=== PATIENT | male | born 1945 | race Caucasian/White ===

== ENCOUNTER 2017-04-07 15:11 | Inpatient (IN) ==
[2017-04-07 15:48] LABS: URINE CULTURE NEEDED? NO; URINE MICRO REVIEW NEEDED? NO; URINE SOURCE CLEAN CATCH
[2017-04-07 16:08] LABS: BASO% 0.6 % (0.0-0.8); EOS# 0.09 X1000 (0.0-0.7); EOS% 0.8 % (0.0-10.0); HEMOGLOBIN 14.1 g/dL (14.0-18.0); IMM GRAN# 0.04 X1000 (0.0-0.04); IMM GRAN% 0.4 % (0.0-0.5); LYMPH# 1.36 X1000 (1.2-3.4); LYMPH% 12.1 % (20.5-51.1); MANUAL DIFF NEEDED? NO; MCH 31.5 PG (27-31); MCHC 35.3 g/dL (33-37); MCV 89.3 FL (81-99); MONO# 1.12 X1000 (0.11-0.59); MONO% 9.9 % (1.7-9.3); NEUT% 76.2 % (42.2-75.2); PLT 146 X1000 (130-400); RBC 4.48 XMIL (4.7-6.1)
[2017-04-07 16:08] LABS: BLOOD URINE NEGATIVE (NEGATIVE); COLOR YELLOW; GLUCOSE URINE NEGATIVE (NEGATIVE); LEUKOCYTES URINE NEGATIVE (NEGATIVE); NITRITE URINE NEGATIVE (NEGATIVE); PROTEIN URINE TRACE mg/dL (NEGATIVE); SP GRAVITY URINE 1.023; TURBIDITY URINE CLEAR (CLEAR); UROBILINOGEN URINE 2 mg/dL (NORMAL)
[2017-04-07 16:10] LABS: UR EPITHELIAL CELLS <10 /HPF (<10); URINE BACTERIA NEGATIVE /HPF; URINE RBC <10 /HPF (<10); URINE WBC <10 /HPF (<10)
[2017-04-07 16:11] LABS: BILIRUBIN URINE LARGE (NEGATIVE)
[2017-04-07 16:22] LABS: AGAP 14; ALBUMIN 3.6 g/dL (3.5-5.0); ALKALINE PHOSPHATASE 546 U/L (32-122); AMYLASE 51 U/L (20-200); BUN 12 mg/dL (8-22); CALCIUM 9.2 mg/dL (8.8-10.2); CHLORIDE 102 mmol/L (98-107); COSMO 278; GOT 215 U/L (10-34); GPT 202 U/L (10-44); LIPASE 33 U/L (13-60); POTASSIUM 4.7 mmol/L (3.5-5.1); SODIUM 139 mmol/L (136-145); TCO2 23 mmol/L (25-35); TOTAL BILIRUBIN 12.76 mg/dL (0.20-1.00); TOTAL PROTEIN 7.2 g/dL (6.3-8.3)
--- NOTE | 2017-04-07 17:51 | Diag Imaging Result Doc PS360 ---
CT ABD/PELVIS W/ IV CONT ONLY - 04/07/2017 INDICATION: ABDOMINAL PAIN AND JAUNDICE TECHNIQUE: A CT dose reduction protocol was used. COMPARISON: Ultrasound abdomen 09/16/2016 FINDINGS: There is a partially visible pulmonary nodule in the right middle lobe measuring 6.8 mm. No infiltrates in the lung bases. Heart size is normal. There is severely advanced cirrhosis with severely abnormal, nodular liver contour and heterogeneity indicating severe liver scarring. There is heterogeneous enhancement in an unusual pattern throughout the dome of the liver. There is also a masslike area at the posterior left lobe of the liver. There is multi segment biliary dilation. The gallbladder is collapsed with numerous small calcified gallstones. There are bilateral renal cysts. No acute abnormality of the kidneys. Adrenals and pancreas are normal. No bowel obstruction or inflammation. Urinary bladder is collapsed with nonspecific wall thickening. Prostate is normal. There is trace pelvic free fluid presumably ascites fluid. There are moderate degenerative changes of the spine. No acute or suspicious bony lesion. There is moderate splenomegaly. The spleen size measures about 14 cm. Splenic vein is patent. There are numerous collaterals including gastroesophageal collaterals and splenorenal collaterals. IMPRESSION: 1. Severely abnormal liver with severe atrophy compatible with advanced cirrhosis. 2. Mildly suspicious hypo-enhancing masses of the liver dome and posterior left lobe. Correlate clinically for possible hepatocellular carcinoma. 3. Severely abnormal gallbladder. Multi segment biliary dilation of intrahepatic bile ducts presumably due to severe scarring. 4. Portal hypertension with venous collaterals. Electronically signed by Viktor Mahmood 04/07/2017 5:49 PM
--- NOTE | 2017-04-07 18:18 | PROVIDER DOCUMENTATION ---
This chart was entered by Nahid Holliday Scribe, acting as scribe for Jagjit Kiran PA. HPI-Abdominal Pain/GI Problem - General Chief Complaint: Abdominal Pain Stated Complaint: JAUNDICE Time Seen by Provider: 04/07/17 16:14 Source: patient Allergies/Adverse Reactions: Patient Allergies Allergy/AdvReac Type Severity Reaction Status Date / Time No Known Allergies Allergy Verified 09/22/16 07:35 Home Medications: Home Medication List Medication Instructions Recorded Confirmed Last Taken Type Tamsulosin [Flomax] 0.4 mg PO DAILY 09/21/16 04/07/17 02/22/17 History - History of Present Illness-ABD Nature of Presenting Problems: Patient is a 71 y/o M that presents to the ER per 's request due to abdominal pain,itching, and jaundice. Patient symptoms began 2 weeks ago and got worse over past few days. patient denies n/v/d, rectal bleeding, fever/ chills, or edema. Abdominal Pain Onset Location: reports: epigastric Pain Radiation: reports: no radiation Quality of Pain: reports: aching, cramping Severity in ED: reports: moderate Onset/Duration: reports: gradual, other (2 weeks) Timing: reports: still present, getting worse (past few days) Activities at Onset: reports: none Modifying Factors: improves with: nothing Associated Symptoms: reports: other (itching). denies: chest pain, diarrhea, dizziness, EENT symptoms, fever/chills, genitourinary problems, nausea, vomiting Similar Symptoms Previously?: Yes Recently seen or treated by another doctor?: Yes Review of Systems - Adult - REVIEW OF SYSTEMS - ADULT Constitutional: denies: chills, fever Eyes: reports: no symptoms reported Ears, Nose, Mouth & Throat: reports: no symptoms reported Cardiovascular: denies: chest pain, orthopnea, palpitations, syncope Respiratory: denies: cough, dyspnea on exertion, shortness of breath, wheezing Gastrointestinal: reports: abdominal pain. denies: constipation, diarrhea, nausea, rectal bleeding, vomiting Genitourinary: reports: no symptoms reported Musculoskeletal: denies: back pain, joint pain, neck pain Integumentary: reports: itching. denies: rash Neurological: denies: dizziness/vertigo, headache/migraines Psychiatric: reports: no symptoms reported Endocrine: reports: change in skin pigment. denies: goiter, increased thirst, polyuria Hematologic/Lymphatic: reports: no symptoms reported Allergic/Immunologic: reports: no symptoms reported All Other Systems: Reviewed and Negative Past History - Adult - PAST MEDICAL HISTORY-ADULT Review of Records: reports: Old Records Reviewed, Nursing Assessment Review, Medications Reviewed Gastrointestinal: reports: liver disease (hep B), other (jaundice in the 70s) - SOCIAL HISTORY Smoking: cigarettes Living Situation: family Physical Exam-General - PHYSICAL EXAM-ADULT Initial Vital Signs Reviewed: Yes - CONSTITUTIONAL General Appearance: alert, mild distress, moderate distress - EYES Eyes: PERRL/EOMI, scleral icterus - HEAD, EARS, NOSE, MOUTH & THROAT HENMT: normocephalic/atraumatic, moist mucous membranes, normal ENT inspection - NECK Neck: full range of motion, normal inspection - RESPIRATORY Respiratory: lungs clear, normal breath sounds, no respiratory distress, no accessory muscle use - CARDIOVASCULAR Cardiovascular: regular rate, rhythm, no edema, no murmur - GASTROINTESTINAL (ABDOMEN) Abdominal Exam: normal bowel sounds, soft, no organomegaly, no pulsatile mass, tenderness (mild epigastric). negative: distended - MUSCULOSKELETAL Back Exam: no CVA tenderness, no vertebral tenderness Extremity: no pedal edema, normal capillary refill, pelvis stable. negative: pedal edema - SKIN Integumentary: jaundice. negative: cyanosis - NEUROLOGIC Neurologic: courier II-XII nml as tested, no motor/sensory deficits - PSYCHIATRIC Psych/Mental Status: normal mood/affect, normal thought content, normal thought process, oriented x 3 Progress - PLAN OF CARE/RESULTS Progress/Plan/Lab Results: Vital Signs - 8 hr 04/07/17 15:16 Temperature 97.9 F Pulse Rate 91 H Respiratory Rate 18 Blood Pressure 139/80 O2 Sat by Pulse Oximetry 100 Laboratory Results - last 24 hr 04/07/17 04/07/17 04/07/17 15:23 15:23 15:23 WBC 11.26 H RBC 4.48 L Hgb 14.1 Hct 40.0 L MCV 89.3 MCH 31.5 H MCHC 35.3 RDW Std Deviation 16.4 H Plt Count 146 MPV Not Reportable Immature Gran % (Auto) 0.4 Neut % (Auto) 76.2 H Lymph % (Auto) 12.1 L [place] % (Auto) 9.9 H Eos % (Auto) 0.8 Baso % (Auto) 0.6 Immature Gran # (Auto) 0.04 Neut # (Auto) 8.58 H Lymph # (Auto) 1.36 [place] # (Auto) 1.12 H Eos # (Auto) 0.09 Baso # (Auto) 0.07 Sodium 139 Potassium 4.7 Chloride 102 Carbon Dioxide 23 L Anion Gap 14 BUN 12 Creatinine 0.7 Estimated GFR/1.73 m2 > 60 BUN/Creatinine Ratio 17 Glucose 109 H Calculated Osmolality 278 Calcium 9.2 Total Bilirubin 12.76 H AST 215 H ALT 202 H Alkaline Phosphatase 546 H Ammonia 19 Total Protein 7.2 Albumin 3.6 Globulin 3.6 Albumin/Globulin Ratio 1.0 Amylase 51 Lipase 33 Urine Source Urine Color Urine Turbidity Urine pH Ur Specific [place] Urine Protein Ur Glucose (Stick) Ur Ketones (Stick) Urine Blood Urine Nitrite Urine Bilirubin Urobilinogen Dipstick Urine Leukocytes Urine WBC (Auto) Urine RBC (Auto) U Epithel Cells (Auto) Urine Bacteria (Auto) 04/07/17 15:25 WBC RBC Hgb Hct MCV MCH MCHC RDW Std Deviation Plt Count MPV Immature Gran % (Auto) Neut % (Auto) Lymph % (Auto) [place] % (Auto) Eos % (Auto) Baso % (Auto) Immature Gran # (Auto) Neut # (Auto) Lymph # (Auto) [place] # (Auto) Eos # (Auto) Baso # (Auto) Sodium Potassium Chloride Carbon Dioxide Anion Gap BUN Creatinine Estimated GFR/1.73 m2 BUN/Creatinine Ratio Glucose Calculated Osmolality Calcium Total Bilirubin AST ALT Alkaline Phosphatase Ammonia Total Protein Albumin Globulin Albumin/Globulin Ratio Amylase Lipase Urine Source CLEAN CATCH Urine Color YELLOW Urine Turbidity CLEAR Urine pH 6.0 Ur Specific [place] 1.023 Urine Protein TRACE A Ur Glucose (Stick) NEGATIVE Ur Ketones (Stick) NEGATIVE Urine Blood NEGATIVE Urine Nitrite NEGATIVE Urine Bilirubin LARGE A Urobilinogen Dipstick 2 A Urine Leukocytes NEGATIVE Urine WBC (Auto) <10 Urine RBC (Auto) <10 U Epithel Cells (Auto) <10 Urine Bacteria (Auto) NEGATIVE Orders Category Date Time Status Saline Loc DIRECTED Care 04/07/17 15:23 Active NPO Diet 04/07/17 15:[address] ABD/PELVIS W/ IV CONT ONLY [CT] Stat Exams 04/07/17 15:24 Ordered AMMONIA [CHEM] Stat Lab 04/07/17 15:23 Completed AMYLASE [CHEM] Stat Lab 04/07/17 15:23 Completed CBC WITH ELECTRONIC DIFF [HEME] Stat Lab 04/07/17 15:23 Completed COMPREHENSIVE METABOLIC PANEL [CHEM] Stat Lab 04/07/17 15:23 Completed LIPASE [CHEM] Stat Lab 04/07/17 15:23 Completed URINALYSIS W/POSS RFLX CULT-1 [URINALYSIS] Stat Lab 04/07/17 15:25 Completed Result Diagrams: 04/07/17 15:23 04/07/17 15:23 - CT/MRI 1 CT Study: Abdomen, Pelvis Impression: Abnormal (advanes cirrhosis; 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; multisegmental biliary dilitation; portal hypertension) - CONSULTS/PCP/HOSPITALIST Notification #1 *Consult/PCP/Hospitalist*: Hospitalist Service Time Discussed: 18:16 Consult Disposition: Admit Departure - Departure Date of Disposition Decision: 04/07/17 Time of Disposition Decision: 18:17 DIAGNOSIS: Liver mass, Dilation of biliary tract, Jaundice Hepatic cirrhosis Qualifiers: Hepatic cirrhosis type: unspecified hepatic cirrhosis Ascites presence: without ascites Qualified Code(s): K74.60 - Unspecified cirrhosis of liver Disposition: ADMITTED INPATIENT 09 Certified Medical Emergency: Emergent Condition: Good Referrals and Follow-Ups: Michell Meza [Primary Care Provider] - - Critical Care Note This patient required my direct & personal management of CC.: No Attestation - Physician/ JABARI Attestation Patient care was provided by Advanced Practice Provider:: Yes Advanced Practice Provider:: Jagjit Kiran Advanced Practice Provider documentation review:: The Mid-level provider documentation, treatment plan and medical decision making was reviewed by the physician who agrees with all treatment and medical decision making by the MLP. The physician spent face to face time with patient:: Yes Advanced Practice Provider documentation review:: The physician spent face to face time with this patient and agrees with all MLP documentation, treatment, and medical decision making by the MLP. See provider notes for further information. This chart was documented by the indicated scribe, (Nahid Holliday, Lachelle) and accurately reflects the services I performed and decisions made by me, Jagjit Kiran PA, as attested by the provider's signature.
[2017-04-07 18:48] LABS: INR 1.03; PROTIME 10.8 Seconds (9.2-11.7)
[2017-04-07 19:02] LABS: ACETAMINOPHEN < 1.2 ug/mL (10-30)
[2017-04-07] MEDS ORDERED: MORPHINE IV PRN (19:04)
[2017-04-07 19:09] LABS: UR AMPHETAMINES QUAL NONE DETECTED (NONE DETECT); UR BARBITUATES QUAL NONE DETECTED (NONE DETECT); UR BENZODIAZEPIN QUAL NONE DETECTED (NONE DETECT); UR CANNABINOIDS QUAL NONE DETECTED (NONE DETECT); UR COCAINE QUAL NONE DETECTED (NONE DETECT); UR METHADONE QUAL NONE DETECTED (NONE DETECT); UR OPIATES QUAL NONE DETECTED (NONE DETECT); UR OXYCODONE QUAL NONE DETECTED (NONE DETECT); UR PCP QUAL NONE DETECTED (NONE DETECT)
[2017-04-07 19:36] LABS: IRON SATURATION 61 %; TIBC 296 ug/dL; TOTAL IRON 182 ug/dL (53-167); UNBOUND IRON 114 ug/dL (112-346)
--- NOTE | 2017-04-07 19:46 | HISTORY AND PHYSICAL ---
PRIMARY CARE PHYSICIAN: Michell Meza MD. SOLAR HOT WATER INSTALLER: Tiff Johnson MD. CHIEF COMPLAINT: Abdominal pain and jaundice. HISTORY OF PRESENT ILLNESS: Mr. Miles is a 71-year-old male, who has a history of cirrhosis and hepatitis B, and is currently being followed by Dr. Johnson. He saw her at the beginning of the year with complaints of weight loss. He was ultimately found to have cirrhosis of the liver and had EGD and a liver biopsy. Liver biopsy was done exactly 1 month ago today and it only showed active hepatitis and cirrhosis, but there was no malignancy. The patient reports that he has lost about 30 pounds over the past [address] Johnson had the patient to follow up with Dr. Olivier at [facility] with hepatology. However, patient's insurance has been pushing back and he has not been able to get down there. A few days ago started having abdominal pain, and last week his noticed that he was jaundiced and this has been increasingly worse over the past few days. So he came to the ER after seeing his PCP. In the ER, he was noted to have a bilirubin of 12.6 with transaminases in the 100s. Last month his T-bilirubin was normal. He says he has been having isiah-colored urine, but no other complaints at this time. His belly hurts most in the right upper and lower quadrant. Other than his elevated LFTs, his labs are essentially unremarkable. A CT done in the ER shows severely abnormal liver with severe atrophy compatible with cirrhosis and there was mild suspicious hypo-enhancing masses of the liver dome and posterior left lobe. There was a question of possible HCC. He did also have a severe abnormal gallbladder with multi segment biliary dilatation of intrahepatic bile ducts presumably due to severe scarring. There was also portal hypertension. His vitals are stable. He is now going to be admitted for further treatment and evaluation. PAST MEDICAL HISTORY: 1. Cirrhosis of the liver, etiology unknown. 2. History of hepatitis B, patient reports that he was cured in 1969, but we do not have a negative hepatitis panel on file. 3. BPH. SURGICAL HISTORY: Liver biopsy. SOCIAL HISTORY: Patient smokes about a quarter pack a day. He chews tobacco every day. He has a distant history of alcohol dependence, but he currently does not use alcohol or drugs. He is . His is at the bedside. FAMILY HISTORY: Noncontributory. REVIEW OF SYSTEMS: Fourteen-point review of systems obtained and found to be negative with the exception of the HPI. HOME MEDICATIONS: Flomax 0.4 mg daily. ALLERGIES: No known drug allergies. PHYSICAL EXAMINATION: VITAL SIGNS: Blood pressure is 121/57, heart rate 77, respiratory rate 14, O2 saturation 100% on room air. Temperature is 98.8. GENERAL: This is a well-developed, but somewhat disheveled-appearing, 71-year- old male, lying in hospital bed. No acute distress generally. He is jaundiced. HEENT: Head atraumatic and normocephalic. His pupils are equal, round, reactive to light. Sclerae are icteric. Oral mucosa is pale and dry. NECK: Trachea is midline. There is no JVD. CHEST: Clear to auscultation bilaterally. CARDIOVASCULAR: Regular rate and rhythm. S1-S2 as noted. GI: Slightly distended with tenderness to palpation. Generally most in the right upper and lower quadrant. There is some mild abdominal distention. EXTREMITIES: Without edema, clubbing or cyanosis. Pulses are diminished but palpable bilaterally. DIAGNOSTIC DATA: Abdomen CT, please see report. WBC 11.26, hemoglobin 14.1, hematocrit 40, platelet count 146. INR 1.03, sodium 139, potassium 4.7, chloride 102, CO2 of 23, anion gap 14, BUN 12, creatinine 0.7, glucose 109, calcium 9.2. Total bilirubin 12.76. AST 215, ALT 202, alkaline phosphatase 546, ammonia is 19. Lipase is 33. UA is negative, shows large bilirubin. Alcohol level 0. ASSESSMENT AND PLAN: 1. Obstructive jaundice: Certainly the concern is for hepatocellular carcinoma. He had a biopsy done which is negative. However, he did have an AFP done last month, which showed levels in the 100s. We are going to order a hepatitis panel and an MRI of the abdomen in the morning. We will consult Dr. Figueroa who is covering for Dr. Johnson for possibly ERCP. We will do an abdominal ultrasound to evaluate his biliary duct and possibly consult surgery, although the gallbladder is not likely to be his issue. We are also checking acetaminophen and drug levels. We will also check iron studies to rule out iron deposition disease. 2. Benign prostatic hypertrophy. We are going to hold off on his Flomax. 3. Deep vein thrombosis prophylaxis will be provided with sequential compression devices and TEDs given the possibility of any invasive procedures. Further recommendations to follow. Dictated by TAY Mercedes for Queenie Collins MD cc: TAY Mercedes MD Jeanette Keith, MD Faye Wilson, MD The patient was seen and examined by me. All imaging and laboratory studies were also reviewed. I agree with the assessment and plan as dictated. MTDD
[2017-04-07] MEDS: NS 1,000 ML IV SCH (22:35)
[2017-04-07] MEDS: SODIUM CHLORIDE 0.9% INJ SCH (22:36)
[2017-04-07] MEDS: NICODERM PATCH TD SCH (22:36)
[2017-04-07] MEDS: NEXIUM IV SCH (22:56)
[2017-04-08 05:44] LABS: HEMATOCRIT 34.7 % (42.0-52.0); HEMOGLOBIN 12.1 g/dL (14.0-18.0); MCH 31.7 PG (27-31); MCHC 34.9 g/dL (33-37); MCV 90.8 FL (81-99); MPV 14.4 FL (7.4-10.4); RBC 3.82 XMIL (4.7-6.1)
[2017-04-08 06:01] LABS: AGAP 12; ALBUMIN 3.1 g/dL (3.5-5.0); ALKALINE PHOSPHATASE 456 U/L (32-122); BUN 9 mg/dL (8-22); CALCIUM 8.9 mg/dL (8.8-10.2); CHLORIDE 104 mmol/L (98-107); COSMO 274; GOT 537 U/L (10-34); GPT 454 U/L (10-44); HDL 5 mg/dL (35-55); LDL 167 mg/dL; SODIUM 138 mmol/L (136-145); TCO2 22 mmol/L (25-35); TOTAL PROTEIN 5.5 g/dL (6.3-8.3); TRIGLYCERIDES 93 mg/dL (39-160); VLDL 19 mg/dL
--- NOTE | 2017-04-08 08:26 | Diag Imaging Result Doc PS360 ---
US ABDOMEN-COMPLETE - 04/08/2017 INDICATION: severe obstructive jaundice COMPARISON: CT with contrast 04/07/2017, ultrasound 09/16/2016 FINDINGS: The liver is atrophic with severe nodularity compatible with cirrhosis. Once again, there is a suspicious mass in the posterior left lobe of the liver. There is severe architectural distortion of the liver with numerous dilated intrahepatic bile ducts centrally. The common bile duct measures 9 mm. Spleen is enlarged measuring 14.1 x 14 x 7 cm. The gallbladder is collapsed with a shadowing complex of stones consistent with the appearance on the CT. Pancreas is obscured. Both kidneys are normal. Aorta, IVC, and main portal vein are patent. IMPRESSION: 1. Suspicious mass in the posterior left lobe of the liver. 2. Severe cirrhosis with architectural distortion and intra and extrahepatic biliary dilation of uncertain origin. 3. Splenomegaly. 4. Gallbladder is collapsed with numerous stones inside. Electronically signed by Viktor Mahmood 04/08/2017 8:24 AM
--- NOTE | 2017-04-08 10:02 | Diag Imaging Result Doc PS360 ---
EXAM: MRI ABDOMEN W/WO CONTRAST HISTORY: obstructive jaundice TECHNIQUE: Axial and coronal images obtained in multiple sequences. These are followed the post contrasted images. COMPARISON: CT from 04/07/2017 FINDINGS: There is a large central hepatic mass measuring approximately 4.4 x 5.8 x 6.2 cm. It is difficult to tell from which lobe this arises. There is marked biliary ductal dilatation. The liver is prominent and nodular. The gallbladder is contracted and contains several stones. The spleen is mildly prominent measuring just over 13 cm. There are scattered renal cysts. Neither adrenal gland is enlarged. No pancreatic abnormality identified. No aortic aneurysm although there is atherosclerosis. The bowel loops are not dilated. The common bile duct is not dilated. Vague enhancement of the mass on the postcontrast images. IMPRESSION: Findings highly suspicious for hepatocellular carcinoma and cirrhosis with severe intrahepatic biliary ductal dilatation. Electronically signed by Narayan Schulz 04/08/2017 9:59 AM
[2017-04-08 10:20] LABS: HEPATITIS PROFILE ACUTE SEE COMMENTS
[2017-04-08] MEDS: NICODERM PATCH TD SCH (10:27)
[2017-04-08 11:41] LABS: IRON SATURATION 38 %; TIBC 234 ug/dL; TOTAL IRON 88 ug/dL (53-167); UNBOUND IRON 146 ug/dL (112-346)
[2017-04-08] MEDS: NS 1,000 ML IV SCH (18:08)
--- NOTE | 2017-04-08 18:18 | PROGRESS NOTE ---
DATE: 04/08/2017 SUBJECTIVE: The patient is resting comfortably in bed. States that he is hungry. OBJECTIVE: Vital signs: Temperature 98, blood pressure 100/76, heart rate 83, respirations 16, O2 saturation 98% on room air. General: This is an elderly male lying in bed in no acute distress. HEENT: Normocephalic, atraumatic. Heart: S1, S2 normal. Regular rate and rhythm. Lungs: Clear to auscultation bilaterally. Abdomen: Positive bowel sounds, soft, nontender, nondistended. Extremities: No edema, no cyanosis, no calf tenderness. Neurologic: The patient is alert and oriented x3. LABORATORY DATA: White blood cell count 9.1, hemoglobin 12, hematocrit 34, platelets 114. Sodium 138, potassium 4, chloride 104, CO2 of 22, BUN 9, creatinine 0.6, glucose 91, total bilirubin 12, AST 537, ALT 464, alkaline phosphatase 456. ASSESSMENT AND PLAN: 1. Elevated liver function tests with intra and extrahepatic biliary dilatation. Management as per GI. 2. Liver mass suspicious for hepatocellular carcinoma. Further management as per the teaching artist. 3. Severe liver cirrhosis. Aware. 4. Thrombocytopenia. Will monitor the patient's platelet count closely. cc: Queenie Collins MD
[2017-04-08] MEDS: NEXIUM IV SCH (20:26)
[2017-04-08] MEDS: SODIUM CHLORIDE 0.9% INJ SCH (20:26)
--- NOTE | 2017-04-08 21:24 | CONSULTATION ---
DATE OF CONSULTATION: 04/08/2017 CONSULTING PHYSICIAN: Queenie Collins MD REASON FOR CONSULT: Jaundice. HISTORY: This is a 71-year-old, white male who has cirrhosis of the liver and apparently liver mass. He was being evaluated in the process of referring to the [facility] Hepatology Department, but he was at his primary care's office where he was noticed to have jaundice. He was referred to back to Dr. Johnson who had him investigated in the emergency room and was found to have severe jaundice and elevated LFT and CT scan of the abdomen showed a possible mass in the liver as well as intrahepatic and extrahepatic biliary dilation. He was admitted for further management. Patient tells me that he has noticed yellow discoloration of his sclerae for the past 2 weeks and also noticed yellow discoloration of his urine and pale stool with some itching. He has not been eating well because of dyspepsia and has lost weight. Again, he was in the process of being referred to [facility]. PAST MEDICAL HISTORY: Significant for history of benign prostatic hypertrophy. History of chronic liver disease. Cirrhosis of the liver. Etiology at this point not known. History of colon polyp. History of cholelithiasis. Gastroesophageal reflux disease. SURGICAL HISTORY: He has had arthroscopic surgery of his left knee and left foot surgery. MEDICATION PRIOR TO HIS HOSPITALIZATION: Nexium. Flomax. ALLERGIES: No known drug allergies. SOCIAL HISTORY: He is . Lives with his . Does not smoke. Does not drink. Does not use illicit drugs. FAMILY HISTORY: Noncontributory. REVIEW OF SYSTEMS: As per HPI as above. PHYSICAL EXAMINATION: General: Very pleasant white male. He is lying in bed. He is conscious, alert, appears to be in no distress. Vitals: Temperature 99.4 degrees, pulse was 96 per minute and regular, breathing 16, blood pressure 129/68. He weighs about 128 pounds. He is 5 feet 9 inches tall. HEENT: Head is atraumatic, normocephalic. Eyes: Conjunctivae normal. Sclerae deeply icteric. Nares are patent. No discharge. Mouth: Buccal mucosa is moist. Throat is normal. Neck: Supple. No lymphadenopathy or thyromegaly. Chest: Clear to auscultate. Heart regular. No murmur. Abdomen: Full, soft, nontender. Bowel sounds audible. No pedal edema noted. LABORATORY: Reviewed which showed WBC of 9.13. Hemoglobin 12.1. Hematocrit 34.7, MCV 90.8, platelets were 113,000. Sodium 138, potassium 4, chloride 104, bicarbonate 22, BUN is 9, creatinine 0.6, AST is 537. ALT 454. Alkaline phosphatase 456. Total bilirubin was 12.1, total protein 3.3. Acute hepatitis panel was normal. IMAGING: CT scan of the abdomen shows severely atrophic liver suggestive of cirrhosis. Multiple hypodensity masses noted in the liver and severely abnormal gallbladder with multiple segmented biliary dilation or intra and extrahepatic biliary dilation. There is a possibility of a portal hypertension. IMPRESSION: This is a 71-year-old gentleman who has presented with severe jaundice. His bilirubin in February was normal. He has evidence of chronic liver disease and cirrhosis. The cause of cirrhosis is not known. He has clinical features of obstructive jaundice as well with the imaging studies showed showing both intra and extrahepatic biliary dilation. For therapeutic purposes, he needs an ERCP with possible stenting and further plans of biopsying the hypodense areas to get the definitive diagnosis. His alpha fetoprotein was significantly high. I am concerned of possible tumor, may be hepatocellular carcinoma or metastatic lesion from other source. However, biopsy may shed more light on that. I have explained the findings and plan to the patient. I have explained to her the procedure of ERCP, the risks of, but not limited to bleeding, perforation, aspiration pneumonia, and pancreatitis. He understands and is eager to proceed. He will be scheduled for tomorrow. cc: lAeksandr Figueroa MD
[2017-04-09] MEDS: NS 1,000 ML IV SCH ×4 (03:08→21:34)
[2017-04-09 06:01] LABS: HEMATOCRIT 32.4 % (42.0-52.0); HEMOGLOBIN 11.3 g/dL (14.0-18.0); MCH 31.7 PG (27-31); MCHC 34.9 g/dL (33-37); MCV 90.8 FL (81-99); MPV 14.6 FL (7.4-10.4); RBC 3.57 XMIL (4.7-6.1)
[2017-04-09 06:04] LABS: INR 1.13
[2017-04-09 06:24] LABS: AGAP 10; ALBUMIN 2.7 g/dL (3.5-5.0); ALKALINE PHOSPHATASE 431 U/L (32-122); BUN 13 mg/dL (8-22); CHLORIDE 104 mmol/L (98-107); COSMO 270; POTASSIUM 3.7 mmol/L (3.5-5.1); SODIUM 135 mmol/L (136-145); TCO2 21 mmol/L (25-35); TOTAL BILIRUBIN 13.51 mg/dL (0.20-1.00); TOTAL PROTEIN 5.1 g/dL (6.3-8.3)
[2017-04-09 06:34] LABS: GOT 796 U/L (10-34); GPT 732 U/L (10-44)
[2017-04-09] MEDS: NICODERM PATCH TD SCH (08:15)
[2017-04-09 08:46] LABS: URINE SOURCE CLEAN CATCH
[2017-04-09 09:02] LABS: BLOOD URINE NEGATIVE (NEGATIVE); COLOR YELLOW; GLUCOSE URINE NEGATIVE (NEGATIVE); LEUKOCYTES URINE TRACE (NEGATIVE); NITRITE URINE NEGATIVE (NEGATIVE); PH URINE 6.5; PROTEIN URINE TRACE mg/dL (NEGATIVE); SP GRAVITY URINE 1.025; TURBIDITY URINE CLEAR (CLEAR); UROBILINOGEN URINE 2 mg/dL (NORMAL)
[2017-04-09 09:03] LABS: URINE MICRO REVIEW NEEDED? YES
[2017-04-09 09:05] LABS: UR EPITHELIAL CELLS <10 /HPF (<10); URINE BACTERIA NEGATIVE /HPF; URINE WBC <10 /HPF (<10)
[2017-04-09 09:07] LABS: BILIRUBIN URINE LARGE (NEGATIVE)
[2017-04-09 09:17] LABS: URINE CASTS NONE SEEN; URINE CRYSTALS NONE SEEN; URINE SMALL ROUND CELLS NONE SEEN
[2017-04-09] MEDS ORDERED: DIPRIVAN 1% 500 MG/50 ML BOTTLE ONE (14:16)
[2017-04-09] MEDS ORDERED: INDOCIN ONE (14:18)
[2017-04-09] MEDS ORDERED: GLUCAGON ONE (15:00)
[2017-04-09] MEDS ORDERED: CIPROFLOXACIN IV ONE (15:20)
[2017-04-09] MEDS ORDERED: DEXTROSE IV ONE (15:20)
--- NOTE | 2017-04-09 15:55 | Diag Imaging Result Doc PS360 ---
EXAM: ERCP-BILIARY AND PANCREATIC INDICATION: Obstructive jaundice TECHNIQUE: COMPARISON: None. FINDINGS: Four spot fluoroscopic images were provided, which were performed during ERCP and biliary stent placement by Dr. Figueroa. There are multiple filling defects seen in the gallbladder and in the common hepatic duct consistent with stones. The common hepatic duct is dilated. The common bile duct is much less dilated. On the final image, the newly placed biliary stent is in place. IMPRESSION: As above. Electronically signed by Presley Brar 04/09/2017 3:53 PM
--- NOTE | 2017-04-09 16:40 | OPERATIVE NOTE ---
PROCEDURE DATE: 04/09/2017 PROCEDURE: 1. Endoscopic retrograde cholangiopancreatography. 2. Sphincterotomy. 3. Stent placement. PREOPERATIVE DIAGNOSIS: 1. Obstructive jaundice. 2. Cirrhosis of the liver with possible mass in the liver. POSTOPERATIVE DIAGNOSIS: 1. Stricture mid common bile duct with dilated proximal common bile duct and intrahepatic ducts. 2. Cholelithiasis SCOPE USED: Olympus duodenoscope. MEDICATIONS: MAC as per Anesthesia. HISTORY: This is a 71-year-old gentleman who has history of cirrhosis of the liver of unknown etiology and he had a liver mass. He has presented with elevated LFTs and severe jaundice. Imaging study shows evidence of dilated biliary system. ERCP was done for diagnostic as well as therapeutic purposes. DESCRIPTION OF OPERATION: Informed consent obtained from the patient. The procedure, risks, benefits, alternatives were explained in layman's terms. Risks of, but not limited to bleeding, perforation, aspiration, pneumonia, and pancreatitis was explained. He understood. All his pertinent questions were answered. He agreed to proceed. Patient was brought to the endoscopy unit and was premedicated as per Anesthesia. After adequate sedation, while he was lying in left lateral position, the duodenoscope was introduced into the posterior pharynx and advanced manually into the esophagus. Through the esophagus, it was advanced to the stomach. Stomach was insufflated. The pylorus was identified. The scope was then passed through the pylorus into the duodenal bulb and advanced into 2nd part of duodenum. The major papilla was identified. Using the sphincterotome, the common bile duct was cannulated. After deep cannulation, contrast injected which revealed normal sized distal common bile duct up to the area where the gallbladder was present. However, the biliary system proximal to that was severely dilated. There appeared to be a stricture at the confluence. There were multiple filling defects noted in the gallbladder. There was some filling defects noted in the proximal biliary system also. At this point, I went ahead and proceeded with sphincterotomy. After adequate sphincterotomy, the biliary ducts were swiped using a balloon. I did get some clots and debris, along with some old blood, but no distinct stone was seen coming out. After that, I went ahead and placed a 10-Turkish, 9 cm long plastic stent bridging the strictured area behind the gallbladder. Good flow was noted. The scope was then removed. Patient tolerated the procedure with no complications noted. Patient was then transferred to the recovery area in a stable condition. IMPRESSION: Stricture middle of the common bile duct. Dilated bile duct and intrahepatic biliary system. Cholelithiasis. RECOMMENDATION: Patient will need further investigation which will include biopsy of the mass of the liver. I am concerned about possibility of a liver mass impinging onto the common bile duct causing the obstruction/stricture. Depending on the diagnosis, further plans will be made. Considering him being a patient with cirrhosis, cholecystectomy would be detrimental. I have explained the findings and plan to the patient, his family member and they understood. All the pertinent questions were answered. cc: Aleksandr Figueroa MD
[2017-04-09] MEDS: PROTONIX IV SCH (17:28)
[2017-04-09] MEDS: SODIUM CHLORIDE 0.9% INJ SCH (17:28)
[2017-04-10] MEDS: NS 1,000 ML IV SCH ×2 (05:37→15:00)
[2017-04-10 05:58] LABS: HEMATOCRIT 32.4 % (42.0-52.0); HEMOGLOBIN 11.4 g/dL (14.0-18.0); MCHC 35.2 g/dL (33-37); PLT 103 X1000 (130-400); RBC 3.68 XMIL (4.7-6.1)
[2017-04-10 06:02] LABS: INR 1.13
[2017-04-10 06:22] LABS: AGAP 14; ALBUMIN 2.5 g/dL (3.5-5.0); ALKALINE PHOSPHATASE 413 U/L (32-122); BUN 9 mg/dL (8-22); CALCIUM 8.4 mg/dL (8.8-10.2); CHLORIDE 106 mmol/L (98-107); COSMO 279; GOT 432 U/L (10-34); GPT 596 U/L (10-44); POTASSIUM 3.6 mmol/L (3.5-5.1); SODIUM 140 mmol/L (136-145); TCO2 20 mmol/L (25-35); TOTAL PROTEIN 4.6 g/dL (6.3-8.3)
[2017-04-10] MEDS: CIPRO 400 MG/D5W 400 MG/200 ML IVPB IV SCH ×2 (06:29→18:15)
[2017-04-10] MEDS: NICODERM PATCH TD SCH (08:26)
--- NOTE | 2017-04-10 09:12 | PROGRESS NOTE ---
DATE: 04/09/2017 SUBJECTIVE: The patient is resting comfortably in bed, the patient has no complaints. OBJECTIVE: Vital Signs: Temperature 98.7 degrees, blood pressure 139/68, heart rate 75, respirations 16, O2 saturations 98% on room air. General: This is an elderly male lying in bed in no acute distress. Head: Normocephalic, atraumatic. Heart: S1, S2. Normal. Regular rate and rhythm. Lungs: Clear to auscultation bilaterally. No wheezing. No rales. No rhonchi. Abdomen: Positive bowel sounds. Soft, nontender, nondistended. Extremities: No edema. No cyanosis. No calf tenderness. Neurologic: The patient is alert, oriented x3. LABS: White blood cell count 10, hemoglobin 11, hematocrit 32 platelets 108,000. Sodium 135, potassium 3.7 chloride 104, CO2 21, BUN 13, creatinine 0.6, glucose 101, total bilirubin 13.5, AST 796, ALT 732, alkaline phosphatase 431. ASSESSMENT AND PLAN: 1. Obstructive jaundice. The patient is scheduled for an ERCP today. 2. Liver mass. The patient will likely require a biopsy. This will be arranged by the hospital security officer. 3. Liver cirrhosis. Aware. Management as per the hospital security officer. 4. Cholelithiasis. Aware. cc: Queenie Collins MD
[2017-04-10] MEDS: FLOMAX PO SCH (12:25)
--- NOTE | 2017-04-10 14:26 | PROGRESS NOTE ---
DATE: 04/10/2017 SUBJECTIVE: The patient complains of abdominal fullness. A bladder scan was done and the patient was retaining 900 mL of urine. A Melchor catheter was placed. OBJECTIVE: Vital Signs: Temperature 97.8, blood pressure 128/68, heart rate 89, respirations 16, O2 saturations 97% on room air. General: This is an elderly male, lying in bed, in no acute distress. Head: Normocephalic, atraumatic. Heart: S1, S2. Normal. Regular rate and rhythm. Lungs: Clear to auscultation bilaterally. Abdomen: Positive bowel sounds. Soft, nontender, nondistended. Extremities: No edema. No cyanosis. No calf tenderness. Neurologic: The patient is alert and oriented x3. LABS: Bilirubin 16. ASSESSMENT AND PLAN: 1. Obstructive jaundice, status post ERCP with stent placement. Will continue to monitor the patient's liver function tests closely. Gastroenterology is following. 2. Liver mass. The patient will likely require a biopsy. This will be arranged by the social media strategist. 3. Urinary retention. We will restart the patient's Flomax and place a Melchor catheter at this time. 4. Severe liver cirrhosis. Aware. 5. Leukocytosis. So far, the cultures are negative. The patient is currently on IV ciprofloxacin. cc: Queenie Collins MD
[2017-04-10] MEDS: SODIUM CHLORIDE 0.9% INJ SCH (15:00)
[2017-04-10] MEDS: PROTONIX IV SCH (15:00)
[2017-04-11] MEDS: CIPRO 400 MG/D5W 400 MG/200 ML IVPB IV SCH ×2 (05:30→18:30)
[2017-04-11] MEDS: NS 1,000 ML IV SCH (05:34)
[2017-04-11 06:01] LABS: BASO% 0.3 % (0.0-0.8); EOS# 0.17 X1000 (0.0-0.7); EOS% 1.8 % (0.0-10.0); HEMATOCRIT 29.4 % (42.0-52.0); HEMOGLOBIN 10.3 g/dL (14.0-18.0); IMM GRAN# 0.03 X1000 (0.0-0.04); IMM GRAN% 0.3 % (0.0-0.5); LYMPH# 1.46 X1000 (1.2-3.4); LYMPH% 15.5 % (20.5-51.1); MANUAL DIFF NEEDED? YES; MCV 88.6 FL (81-99); MONO# 1.18 X1000 (0.11-0.59); MONO% 12.5 % (1.7-9.3); NEUT% 69.6 % (42.2-75.2); PLT 115 X1000 (130-400); RBC 3.32 XMIL (4.7-6.1)
[2017-04-11 06:13] LABS: INR 1.14; PROTIME 12.1 Seconds (9.2-11.7)
[2017-04-11 06:19] LABS: AGAP 13; ALBUMIN 2.4 g/dL (3.5-5.0); ALKALINE PHOSPHATASE 341 U/L (32-122); BUN 8 mg/dL (8-22); CHLORIDE 106 mmol/L (98-107); COSMO 279; GOT 228 U/L (10-34); GPT 426 U/L (10-44); MAGNESIUM 1.7 mg/dL (1.5-2.7); POTASSIUM 3.5 mmol/L (3.5-5.1); SODIUM 140 mmol/L (136-145); TCO2 21 mmol/L (25-35); TOTAL BILIRUBIN 12.41 mg/dL (0.20-1.00); TOTAL PROTEIN 4.7 g/dL (6.3-8.3)
[2017-04-11 06:41] LABS: EOS 2 % (1-10); LYMPHS 11 % (21-51); MONO 8 % (1-9)
[2017-04-11 06:42] LABS: TARGET CELLS 1+
[2017-04-11] MEDS: NICODERM PATCH TD SCH (08:36)
[2017-04-11] MEDS: FLOMAX PO SCH (08:38)
--- NOTE | 2017-04-11 15:32 | PROGRESS NOTE ---
DATE: 04/11/2017 SUBJECTIVE: The patient complains of scrotal swelling. He denies having any abdominal pain, nausea or vomiting. OBJECTIVE: Vital Signs: Temperature 99 degrees, blood pressure 117/68, heart rate 89, respirations 20, O2 saturations 95% on room air. General: This is an elderly male, lying in bed, in no acute distress. Head: Normocephalic, atraumatic. Heart: S1, S2. Normal. Regular rate and rhythm. Lungs: Clear to auscultation bilaterally. Abdomen: Positive bowel sounds. Soft, nontender, nondistended. Scrotum: The patient does have swelling and mild tenderness to palpation. Extremities: No edema. No cyanosis. No calf tenderness. Neurologic: The patient is alert and oriented x3. LABORATORY: White blood cell count 9.4, hemoglobin 10, hematocrit 29, platelets 115,000. INR 1.1. Sodium 140, potassium 3.5, chloride 106, CO2 21, BUN 8, creatinine 0.6, glucose 115, total bilirubin 12, AST 228, ALT 426, alkaline phosphatase 341. ASSESSMENT AND PLAN: 1. Obstructive jaundice status post endoscopic retrograde cholangiopancreatography with sphincterotomy and biliary stent placement. The patient's liver function tests continue to improve slowly. Gastroenterology is following. 2. Liver mass. Gastroenterology will arrange for a liver biopsy. 3. Scrotal swelling. We will order a scrotal ultrasound. May need to consider a Urology consult. 4. Urinary retention. Continue on Flomax and Melchor catheter. 5. Liver cirrhosis. Aware. 6. Thrombocytopenia. Stable. cc: Queenie Collins MD
--- NOTE | 2017-04-11 16:05 | Diag Imaging Result Doc PS360 ---
EXAM: US SCROTUM INDICATION: pain and swelling TECHNIQUE: COMPARISON: None. FINDINGS: There is a large cystic structure in the scrotum on the right. It measures approximately 5.6 x 4.7 x 3.1 cm. A normal right testicle is not identified. There probably is some testicular tissue identified, however. It is unclear if this cyst arises from the testicle or outside of the testicle since the cyst is distorting the normal structures of the scrotum on the right. I suppose it could represent a large spermatocele arising from the right epididymis. However, it is difficult to identify the epididymis on the right. There is no cystic or solid lesion identified involving the left testicle. The left testicle exhibits normal Doppler flow. The left testicle measures up to 3.1 cm in the greatest dimension. IMPRESSION: Large cystic structure in the scrotum on the right. Please see the above discussion. Electronically signed by Presley Brar 04/11/2017 4:02 PM
[2017-04-11] MEDS: PROTONIX IV SCH (16:39)
[2017-04-11] MEDS: SODIUM CHLORIDE 0.9% INJ SCH (16:39)
--- NOTE | 2017-04-12 03:47 | PROGRESS NOTE ---
DATE: 04/10/2017 SUBJECTIVE: The patient is resting comfortably. He has full liquid diet and tolerated it well. Has not had any abdominal pain, nausea, vomiting. He reports improvement in his pain and discomfort in his right testicle. He had noticed it to be swollen yesterday. Unfortunately he had to have Melchor catheter placed for urination. He had trouble going to urinate last night. Other than that, he is doing very well. OBJECTIVE: Vital Signs: Temperature 97.8 degrees, pulse 89 per minute, breathing 16, blood pressure 128/68. Abdomen: Full, soft, nontender. Bowel sounds are audible. LABS: Reviewed which showed his bilirubin has gone up to 16.1 but AST is down to 432 from 796, ALT is down to 596 from 732, and alkaline phosphatase is down to 413 from 431. ASSESSMENT AND PLAN: Obstruction most likely from the smooth stricture in the middle of the common bile duct which appears to be from external compression. Status post ERCP, sphincterotomy and stent placement. The patient appears to be doing well since ERCP. Numbers are going down except for his bilirubin. From GI point of view, the next step would be to proceed with a CT- guided biopsy of the mass seen in his liver and that can be done as an outpatient. As far as GI is concerned, he can be discharged as long as medical team feels no other acute issues especially in the wake of his new urological symptoms. Dr. Johnson will see him as an outpatient and take care the GI issues and I will be available if needed while he is in the hospital till Dr. Johnson comes back from her vacation. cc: Aleksandr Figueroa MD
[2017-04-12] MEDS: CIPRO 400 MG/D5W 400 MG/200 ML IVPB IV SCH ×3 (05:26→17:44)
[2017-04-12 06:16] LABS: MANUAL DIFF NEEDED? NO
[2017-04-12 06:52] LABS: BASO% 0.1 % (0.0-0.8); EOS# 0.16 X1000 (0.0-0.7); EOS% 1.8 % (0.0-10.0); HEMATOCRIT 30.3 % (42.0-52.0); HEMOGLOBIN 10.5 g/dL (14.0-18.0); LYMPH% 21.5 % (20.5-51.1); MCH 31.4 PG (27-31); MCHC 34.7 g/dL (33-37); MCV 90.7 FL (81-99); MONO# 1.17 X1000 (0.11-0.59); MONO% 13.3 % (1.7-9.3); MPV 14.4 FL (7.4-10.4); NEUT% 63.3 % (42.2-75.2); PLT 131 X1000 (130-400); RBC 3.34 XMIL (4.7-6.1)
[2017-04-12 06:56] LABS: AGAP 12; ALBUMIN 2.5 g/dL (3.5-5.0); ALKALINE PHOSPHATASE 338 U/L (32-122); BUN 9 mg/dL (8-22); CALCIUM 8.2 mg/dL (8.8-10.2); CHLORIDE 106 mmol/L (98-107); COSMO 280; GOT 144 U/L (10-34); GPT 300 U/L (10-44); POTASSIUM 3.5 mmol/L (3.5-5.1); SODIUM 141 mmol/L (136-145); TCO2 23 mmol/L (25-35); TOTAL BILIRUBIN 11.24 mg/dL (0.20-1.00); TOTAL PROTEIN 5.2 g/dL (6.3-8.3)
[2017-04-12] MEDS: NICODERM PATCH TD SCH (09:42)
[2017-04-12] MEDS: FLOMAX PO SCH (09:49)
[2017-04-12] MEDS: SODIUM CHLORIDE 0.9% INJ SCH (16:52)
[2017-04-12] MEDS: PROTONIX IV SCH (16:52)
--- NOTE | 2017-04-12 17:03 | CONSULTATION ---
DATE OF CONSULTATION: 04/12/2017 ATTENDING AND REFERRING PHYSICIAN: Hospitalist. HISTORY OF PRESENT ILLNESS: This is a 71-year-old male who was admitted with liver failure. He had an endoscopic retrograde cholangiopancreatography with placement of a biliary stent several days ago. The patient states that ever since then, he has had a firm fluid collection in the right scrotum. He states that before the procedure was done, he had a normal scrotum. He states it is somewhat tender. He denies any history of inguinal hernias. A scrotal ultrasound revealed minimal testicular tissue on the right side with a cystic mass. The left testis was only 3 cm in diameter, but otherwise normal. The patient has an enlarged prostate with obstructive voiding and is taking Flomax. He denies any previous urologic surgery. He has no history of kidney stones. PAST MEDICAL HISTORY: Cirrhosis with history of hepatitis B. CURRENT MEDICATIONS: Documented on the chart. SURGICAL HISTORY: 1. Colonoscopy with biopsy. 2. EGD. 3. Recent ERCP. 4. He had a liver biopsy in February,, that was consistent with severe cirrhosis. SOCIAL HISTORY: Cigarettes and chews tobacco for many years. ETOH use none recent. Previous abuse. ALLERGIES: No known drug allergies. REVIEW OF SYSTEMS: He states he thought he was in good health. He denies any heart disease, strokes, seizures, or recent pulmonary problems. PHYSICAL EXAMINATION: General: A normally developed, well-nourished, age apparent, white male, oriented in all ways and cooperative. HEENT: He is jaundiced; otherwise, normal. Lungs: Clear. Cardiovascular: Regular rate and rhythm. Abdomen: Protuberant, soft, nontender. No hepatosplenomegaly or masses. Normal bowel sounds. Genitourinary: Uncircumcised male with Melchor catheter in place. The left testis is down, somewhat tender, and somewhat small. The her right side has a transilluminating mass about 4-5 cm in diameter, that appears to be tender with palpation, although the left side, which is normal is also tender with palpation. It appears there is a right inguinal hernia. Rectal: Normal sphincter tone. Prostate about 40 g, smooth, and symmetric. Extremities: No clubbing, cyanosis, or edema. Neurologic: No focal deficits. LABORATORY EVALUATION: He has a white count of 8.8, a hemoglobin of 10.5, hematocrit of 30.3. Platelets are 131,000. Serum chemistry had normal electrolytes. BUN 9, creatinine 0.6. Liver functions are elevated. A scrotal ultrasound is as noted in the HPI. IMPRESSION: 1. Acute onset of right scrotal fluid collection, question inguinal hernia. 2. History of urinary retention. Recommend general surgery consult for their evaluation. Continue Flomax 0.4 mg a day. Continue Melchor drainage for at least 2 more days and then a voiding trial. Thank you for this consultation. cc: Yan Razo MD
--- NOTE | 2017-04-12 18:55 | PROGRESS NOTE ---
DATE: 04/12/2017 SUBJECTIVE: Patient has no complaints except persistent pain in his right scrotum. He is still fairly jaundiced. OBJECTIVE DATA: Vital signs: I think his blood pressure and everything looks good 121/59, heart rate of 81, respiratory 16, temperature 98.2, degrees, 97%. Cardiovascular: Regular rate and rhythm. Pulmonary: Bilateral breath sounds. Clear to auscultation. GI: Soft, nontender, nondistended. : He had firmed mass in his right scrotum. LABORATORY DATA: White count 8, hemoglobin and hematocrit 10 and 30, platelets 131,000. CMP T bilirubin 11, AST and ALT of 144, 300, alkaline phosphatase 338. PROBLEM LIST: 1. Scrotal mass which may actually just be a inguinal hernia. We are going to get a general surgical consult. 2. Obstructive jaundice associated with liver mass status post stent. We will continue to follow. 3. Urinary retention. Continue Flomax, Melchor catheter. 4. Thrombocytopenia stable. DISPOSITION: Pending clinical status. cc: Gonzalo Howard MD
--- NOTE | 2017-04-12 21:18 | CONSULTATION ---
DATE OF CONSULTATION: 04/12/2017 HISTORY OF PRESENT ILLNESS: This is a 71-year-old male who has been diagnosed with cirrhosis. He had a liver biopsy back in February that confirmed this finding and showed active hepatitis as well. He has been referred to [facility], but over the last week he has become jaundiced, prompting his admission here. He has been in the hospital now almost a week. He has had a CT scan, an MRI and ultrasound that showed significant biliary dilation with a bile duct stricture and a large liver lesion concerning for hepatocellular carcinoma or even metastasis. He underwent ERCP with stenting of a stricture in the mid common bile duct. His LFTs were trending towards downward. He thinks he has had hepatitis in the past. He used to drink alcohol 20-25 years ago, but never with significant abuse here and nothing recent. He developed some tenderness in his right hemiscrotum with an ultrasound showing a cystic-type lesion. I was consulted to evaluate this. He has no obstructive symptoms, but is quite tender in his right testicle and it seems to bother him more than anything else at this point. PAST MEDICAL HISTORY: 1. Cirrhosis of unclear etiology. 2. Benign prostatic hypertrophy. 3. History of colon polyps. 4. Cholelithiasis. 5. Gastroesophageal reflux disease. SURGICAL HISTORY: He has had arthroscopic surgery of left knee and left foot. Liver biopsy, ultrasound-guided. MEDICATIONS: Flomax and Nexium prior to this. SOCIAL HISTORY: He is . Lives with his . No smoking, alcohol or illicit drugs. FAMILY HISTORY: Negative for cancer. REVIEW OF SYSTEMS: Ten points negative except for what is mentioned in HPI. PHYSICAL EXAMINATION: Vital Signs: Temperature is 98.2 degrees, pulse 81, blood pressure 121/59, O2 saturation 97% on room air. General: He is alert, in no acute distress. HEENT: There is scleral icterus. I do not see any cervical masses or scars. Cardiovascular: Normal rate, regular rhythm. Pulmonary: On room air. Abdomen: Soft and slightly protuberant, but I do not see a fluid wave or abdominal wall varicosities. I do not see any scars. : He has a Melchor catheter in place. The right testicle swollen, very tender. I do not feel an inguinal hernia on either side with Valsalva. Integument: Warm, dry. There is jaundice throughout. There is no lower extremity edema and otherwise well perfused. LABORATORY AND IMAGING: White count today, hematocrit 30. INR 1.14 yesterday, creatinine 0.6, bilirubin has been as high as 16, down to 11. AST 144, ALT 300, alkaline phosphatase 338. Albumin is 2.5. CT scan of the abdomen and pelvis with p.o. and IV contrast shows a severely abnormal liver with atrophy consistent with advanced cirrhosis. There is mild hypoenhancing lesion in the dome of the liver and posterior left lobe to me looks to be potentially originating from segment 3 of the caudate lobe. There is gallbladder with gallstones is contracted. There is multisegment biliary dilation, portal hypertension with venous collaterals. Distal esophageal perigastric and enlarged spleen. MRI of the abdomen 04/08/2017 shows findings suspicious for hepatocellular carcinoma with a large central hepatic mass with largest dimension 6.2 cm. Abdominal ultrasound, suspicious lesion in the left posterior lobe of the liver , changes of cirrhosis, splenomegaly, gallbladder collapse with stones. Scrotal ultrasound from 04/11/2017 shows a large cystic structure in the scrotum 5.6 x 4.7 x 3.1 cm, normal right testicle. It is unclear if this cyst arises from the testicle or outside. Possibly represents a large spermatocele, difficult to identify epididymis on the right. There is no solid lesion. The left testicle is 3.1 cm. Final impression, a large cystic mass. ASSESSMENT AND PLAN: A 71-year-old male with cirrhosis and a large liver lesion and a bile duct stricture. He has had an ERCP and stent and subsequent downtrending in his bilirubin, although he remains clinically very jaundiced. He is tender in his right hemiscrotum. I do not feel a hernia here and his imaging does not seem to suggest this either. It is possible that this is a hydrocele or spermatocele, but I would strongly advise against any surgical intervention right now until we sort out what is going on with his liver. I think the next step would be a percutaneous biopsy of his liver. His previous liver biopsy showed cirrhosis, but did not confirm the lesion here, and then I think he is going to need further evaluation at the tertiary center. He seems to be referred to [facility] and I think this is the next step. If this is truly hepatocellular carcinoma, he is outside the window from a Ayush criteria for liver transplant and would most likely need ablative-type therapies. Regarding the pain in his scrotum, I would recommend treating this as epididymitis,. He is tender here, has a fluid collection. I think antibiotics would not be unreasonable in scrotal support for comfort. I will defer further workup to the Gastroenterology and Medicine Services, but I agree with workup of all etiologies of hepatitis, including viral, autoimmune type processes and storage disorders. With any elective operation or emergent for that matter, he would have a greater than 50% mortality with his liver dysfunction seen and would strongly advise against this. cc: Marce Reyes MD MTDNewton
[2017-04-13] MEDS: CIPRO 400 MG/D5W 400 MG/200 ML IVPB IV SCH ×2 (05:12→18:08)
[2017-04-13 05:45] LABS: HEMATOCRIT 29.9 % (42.0-52.0); HEMOGLOBIN 10.6 g/dL (14.0-18.0); MCH 32.1 PG (27-31); MCHC 35.5 g/dL (33-37); MCV 90.6 FL (81-99); MPV 13.8 FL (7.4-10.4); RBC 3.3 XMIL (4.7-6.1)
[2017-04-13 06:04] LABS: AGAP 12; ALBUMIN 2.4 g/dL (3.5-5.0); ALKALINE PHOSPHATASE 332 U/L (32-122); BUN 12 mg/dL (8-22); CALCIUM 7.9 mg/dL (8.8-10.2); CHLORIDE 106 mmol/L (98-107); COSMO 279; GOT 109 U/L (10-34); GPT 234 U/L (10-44); POTASSIUM 3.8 mmol/L (3.5-5.1); SODIUM 140 mmol/L (136-145); TCO2 22 mmol/L (25-35); TOTAL BILIRUBIN 10.64 mg/dL (0.20-1.00); TOTAL PROTEIN 5.2 g/dL (6.3-8.3)
[2017-04-13] MEDS: PRILOSEC PO SCH (06:10)
[2017-04-13] MEDS: FLOMAX PO SCH (09:04)
[2017-04-13] MEDS: NICODERM PATCH TD SCH (09:05)
[2017-04-13 11:01] LABS: INR 1.13
--- NOTE | 2017-04-13 18:31 | PROGRESS NOTE ---
DATE: 04/13/2017 SUBJECTIVE: Patient has no focal complaints. OBJECTIVE: Blood pressure 121/77, heart rate 91, respiratory rate 22, temperature 98.8 degrees.Cardiovascular: Regular rate and rhythm. Pulmonary: Bilateral breath sounds. Clear to auscultation. GI: Soft, nontender, nondistended. Bowel sounds are positive. Extremities: No clubbing or cyanosis. Grossly jaundiced obviously. LABORATORY DATA: White count 8, hemoglobin and hematocrit 10 and 29, platelets 137,000. INR is down to 1.1. T bilirubin down to 10. AST and ALT down to 109 and 234. AFP is 1413. CEA elevated at 6.8. PROBLEM LIST: 1. Likely hepatocellular carcinoma although this has not been confirmed by biopsy but based on his evidence of mass and elevated AFP he is due to go to [facility] for further evaluation. 2. Biliary obstruction status post stent. His numbers are slowly drifting downward. We will continue to monitor. 3. Urinary retention. He is on Flomax, Melchor catheter. 4. Scrotal mass. Dr. Razo and Dr. Reyes have both evaluated the patient. Dr. Reyes feels he does not have an inguinal hernia. 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 We will continue supportive care. At this point, not recommending any surgical intervention. Again, he is not very convinced this is indeed an inguinal hernia. I am going to put him on a little bit of diuretic as he does have cirrhosis and I think that may be contributing to the swelling and we will continue to monitor. May consider even Aldactone as well. DISPOSITION: Unclear at this point. GI feels he can go home. Clinically his vital signs are stable. Liver enzymes seem to be improving so I think he is probably able to go home soon but Dr. Johnson will return tomorrow and will discuss about the potential for discharge once he is stabilized. cc: Gonzalo Howard MD
[2017-04-13] MEDS: LASIX PO SCH (18:34)
[2017-04-14 06:04] LABS: HEMATOCRIT 31.5 % (42.0-52.0); HEMOGLOBIN 11.1 g/dL (14.0-18.0); MCH 31.9 PG (27-31); MCHC 35.2 g/dL (33-37); MCV 90.5 FL (81-99); MPV 13.6 FL (7.4-10.4); RBC 3.48 XMIL (4.7-6.1)
[2017-04-14 06:09] LABS: AGAP 12; ALBUMIN 2.4 g/dL (3.5-5.0); ALKALINE PHOSPHATASE 344 U/L (32-122); BUN 12 mg/dL (8-22); CALCIUM 8.3 mg/dL (8.8-10.2); CHLORIDE 102 mmol/L (98-107); COSMO 276; GOT 99 U/L (10-34); GPT 202 U/L (10-44); MAGNESIUM 1.7 mg/dL (1.5-2.7); POTASSIUM 3.6 mmol/L (3.5-5.1); SODIUM 138 mmol/L (136-145); TCO2 24 mmol/L (25-35); TOTAL BILIRUBIN 12.17 mg/dL (0.20-1.00); TOTAL PROTEIN 5.1 g/dL (6.3-8.3)
[2017-04-14] MEDS: FLOMAX PO SCH (09:22)
[2017-04-14] MEDS: LASIX PO SCH (09:23)
[2017-04-14] MEDS: NICODERM PATCH TD SCH (09:23)
[2017-04-14] MEDS: CIPRO 400 MG/D5W 400 MG/200 ML IVPB IV SCH (09:33)
[2017-04-14] MEDS: PRILOSEC PO SCH (09:33)
--- NOTE | 2017-04-14 09:55 | PROGRESS NOTE ---
DATE: 04/14/2017 SUBJECTIVE: He says the pain and swelling was just going away last night, but he feels like it is back this morning. He is eating okay. No nausea or vomiting. No changes in his bowel habits. No fevers. OBJECTIVE: Vital Signs: Pulse is 76, blood pressure 116/63, oxygen saturation 97% on room air. General: He is alert. He remains jaundiced, but no acute distress. Abdomen: Soft, nontender. His right testicle remains firm and swollen and tender. His left testicle is normal. LABS: White count is 9, hematocrit 31, creatinine is 0.7, glucose is 103. The bilirubin range elevated at 12. AST and ALT are down to 99 and 102. Alkaline phosphatase 344. ASSESSMENT/PLAN: This is a 71-year-old male with jaundice, large liver lesions and cirrhosis. Unclear exactly the etiology; suspect hepatocellular carcinoma, but this could be a cholangiocarcinoma with metastases to the liver as well causing this type picture. Either way, I do not think he is going to be a surgical candidate at a tertiary center, but he could benefit after tissue diagnosis from an ablative-type therapy. He had an appointment with the staffing consultant in [place], and I think this is where he ultimately will need to receive his definitive care. From a surgical standpoint, he has no signs of cholangitis, and I think it would be reasonable to pursue this further workup as an outpatient. We will continue to follow along while he is here. I think Dr. Johnson is going to see him today and help with his further disposition. Regarding pain in his right testicle, I do not feel a hernia here. Would recommend scrotal support and treatment for likely epididymitis or some orchitis here. He is on antibiotics, but there is no acute surgical intervention needed. Anything surgically would be high risk for the patient. cc: Marce Reyes MD
--- NOTE | 2017-04-14 18:52 | PROGRESS NOTE ---
DATE: 04/14/2017 SUBJECTIVE: The patient has no complaints. His scrotal pain seems better. OBJECTIVE: Vital signs: Blood pressure 117/60, heart rate of 85, respiratory 16, temperature 98.6 degrees, 96% on room air. Cardiovascular: Regular rate and rhythm. Pulmonary: Bilateral breath sounds. Clear to auscultation. GI: Soft, nontender, nondistended. Bowel sounds are positive. Extremities: No clubbing or cyanosis. Lymphatics: No peripheral edema. Obviously, he is extremely jaundiced. PROBLEM LIST: 1. Obstructive biliary jaundice associated with tumor, likely neoplasm. He is status post stent. Clinically, he is stable. Bilirubin levels still variable, but he is stable. 2. Hepatocellular carcinoma, presumed. AFP is through the roof, CA-19-9 is elevated. Could also be a cholangiocarcinoma. CA is mildly elevated. Unable to get a biopsy here. I think the plan is to go to [facility] or [place] for biopsy, which will need to be done urgently to find out what is going on overall with his system and then be able to figure out about long-term care. 3. Scrotal swelling, likely hydrocele. He seems to have improved with diuretic and support/ so I am just going to monitor him. 4. Cirrhosis, uncertain etiology. He seems to be doing okay on the Lasix. I am going to add some low-dose Aldactone and follow and we will monitor. 5. Disposition. We are waiting for Dr. Johnson to evaluate him and decide about need for transfer for treatment. We will continue to follow. cc: Gonzalo Howard MD
[2017-04-14] MEDS: CIPRO PO SCH (20:34)
--- NOTE | 2017-04-14 22:32 | PROGRESS NOTE ---
DATE: 04/14/2017 SUBJECTIVE: The patient states that he is feeling better. He reports less scrotal pain on the right side. He is concerned because his alpha fetoprotein continues to rise and a CT scan suggests that he has 2 lesions in his liver as opposed to 1. His alpha fetoprotein is now 1413. His CEA is 6.8. He is also concerned because his CA-19-9 is elevated, but it has decreased from 13,772 on 04/07/2017 to 924 on 04/13/2017. OBJECTIVE: Vital signs: On exam, the patient's blood pressure is 126/65, pulse is 90, respirations 16, temperature of 98.8 degrees. General: He is in no acute distress, but is visibly jaundiced. Pulmonary: Lungs are clear to auscultation with normal expiratory effort. Cardiovascular: Reveals regular rate and rhythm with no murmurs, gallops, or rubs. Abdominal: Reveals normoactive bowel sounds. The abdomen is soft, nontender, with no rebound or guarding. Urologic: He has an indwelling Melchor in place. He has some mild scrotal edema. Neurologic: He is alert and oriented x3 with appropriate mood, affect, and memory. LABORATORY DATA: Reveals a hemoglobin of 11.1, with hematocrit of 31.5 and a white count of 9.55. He has 144,000 platelets. Sodium is 138, potassium 3.6, chloride 102, CO2 24, BUN 12, creatinine 0.6 with a glucose of 103. Calcium is 8.3, and phosphorus 3.2, magnesium 1.7, total bilirubin 12.17, AST 99, ALT 202, alkaline phosphatase 344, total protein 5.1 and albumin 2.4. IMPRESSION: 1. Obstructive jaundice. 2. Hepatic lesions with elevated alpha fetoprotein, most likely hepatocellular carcinoma, but cholangiocarcinoma cannot be ruled out. 3. Anemia. RECOMMENDATION: 1. We have been working with [facility] regarding the patient's referral. We had recommended Juanito Olivier MD at [facility]. He is not currently on their plan. However, the patient received a call this evening that Rafiq Escoto M.D. at [facility] who is a transplant surgeon is on his list of preferred providers. I spoke with Dr. Escoto this evening via the [facility] gum scoring machine operator. He is willing to see the patient in the outpatient setting. He recommends the patient meets discharge criteria, that the patient should be discharged to home. He will have his nurse contact the patient in the morning to schedule an outpatient follow-up. He asked that all films from [facility] and [facility] be copied onto a disk and sent with the patient to clinic. He will review his findings and examine the patient to determine what treatment options will be considered. I have discussed this with Mr. Miles and his were in agreement. The patient is anxious to go home before he is evaluated at [facility]. 2. The patient underwent an ERCP by Aleksandr Figueroa M.D. Follow-up regarding his stent will be per Dr. Figueroa and Dr. Escoto. 3. On colonoscopy in September, the patient had colon polyps and inflammation in the ascending colon of unknown significance. He is due for repeat colonoscopy in May or June 2017. We will schedule that pending recommendations and treatment given his interval diagnosis of presumed hepatocellular carcinoma versus cholangiocarcinoma. 4. The patient has a history of Monica esophagitis, but his dysphagia has resolved. He had an esophageal ulcer, but reports clinical improvement after receiving Carafate, omeprazole and Diflucan. He denies abdominal pain. Therefore, I recommend supportive care. 5. The patient has been treated for Helicobacter pylori gastritis with a subsequent negative breath test. At this time, I recommend no further intervention in the absence of the return of his symptoms. 6. The patient has a history of hepatitis B in the past, but his hepatitis serology is negative. I will defer to Dr. Escoto regarding further management at this time. He may need an evaluation by the liver transplant window and door installer once he is evaluated at [facility]. 7. From a Gastroenterology perspective, it is reasonable to consider discharge tomorrow barring any unforeseen events overnight. We will have the patient return to clinic in 3-4 weeks to see me. This will allow for evaluation at [facility] and for definitive treatment to be outlined. cc: MD Michell Nam MD Alexis R. Penot, MD R. Tyler Harney, MD Khurshid Yousuf, MD MTDD
[2017-04-15 06:05] LABS: HEMATOCRIT 30.5 % (42.0-52.0); HEMOGLOBIN 10.8 g/dL (14.0-18.0); MCH 32.3 PG (27-31); MCHC 35.4 g/dL (33-37); MCV 91.3 FL (81-99); MPV 13.8 FL (7.4-10.4); RBC 3.34 XMIL (4.7-6.1)
[2017-04-15 06:28] LABS: AGAP 11; ALBUMIN 2.5 g/dL (3.5-5.0); ALKALINE PHOSPHATASE 337 U/L (32-122); BUN 13 mg/dL (8-22); CALCIUM 8.5 mg/dL (8.8-10.2); CHLORIDE 103 mmol/L (98-107); COSMO 277; GOT 86 U/L (10-34); GPT 159 U/L (10-44); POTASSIUM 3.7 mmol/L (3.5-5.1); SODIUM 139 mmol/L (136-145); TCO2 25 mmol/L (25-35); TOTAL BILIRUBIN 10.46 mg/dL (0.20-1.00); TOTAL PROTEIN 5.3 g/dL (6.3-8.3)
[2017-04-15] MEDS: PRILOSEC PO SCH (07:19)
[2017-04-15] MEDS: ALDACTONE PO SCH ×2 (09:10→09:22)
[2017-04-15] MEDS: FLOMAX PO SCH (09:10)
[2017-04-15] MEDS: LASIX PO SCH (09:10)
[2017-04-15] MEDS: CIPRO PO SCH (09:11)
[2017-04-15] MEDS: NICODERM PATCH TD SCH (09:11)
[2017-04-15 12:27] VITALS: BP 127/69
--- NOTE | 2017-04-15 17:26 | DISCHARGE SUMMARY ---
ADMISSION DATE: 04/07/2017 DISCHARGE DATE: 04/15/2017 CONSULTATIONS: 1. Dr. Figueroa with Gastroenterology. 2. Dr. Yuval Reyes with General Surgery. 3. Dr. Yan Razo with Urology. PERTINENT PROCEDURES: 1. Abdomen and pelvis CT showed severely abnormal liver with severe atrophy compatible with advanced cirrhosis mildly suspicious hypoenhancing metastasis of the liver dome and posterior liver lobe correlate clinically for a possible hepatocellular carcinoma, severely abnormal gallbladder, multisegment biliary dilatation intrahepatic bile ducts presumably due to severe scarring, portal hypertension with venous collaterals. 2. Abdominal MRI findings are highly suspicious for hepatocellular carcinoma and cirrhosis with severe intrahepatic biliary ductal dilatation. 3. Abdominal ultrasound, suspicious mass in the posterior left lobe of the liver. Severe cirrhosis with architectural distortion, in intra and extra hepatic biliary dilatation of uncertain origin, splenomegaly, gallbladder is collapsed with numerous stones inside. 4. ERCP with sphincterectomy and stent placement by Dr. Figueroa. 5. Scrotum ultrasound showed large cystic structure in the scrotum on the right. DISCHARGE DIAGNOSES: 1. Obstructed biliary jaundice associated with tumor likely neoplasm status post ERCP with stent placement, clinically stable. Bilirubin level is still variable but stable. 2. Hepatocellular carcinoma presumed. AFP is extremely high. CA-19-9 elevated. CEA is mildly elevated. Unable to get a biopsy here. Dr. Johnson had been working closely with [facility] to get the patient transferred to [facility] with a specific doctor who was not on their service however Dr. Rafiq Escoto at [facility] who is a transplant surgeon is on their preferred list of providers. Recommend that the patient meets discharge criteria, and should will be discharged home and his nurse will contact the patient to schedule an outpatient followup and request records from [facility] be copied on a disk and sent to his patient clinic where they will be reviewed and options can be discussed with Mr. Miles and his or they can determine what treatment options will need to be considered. 3. Scrotal swelling, likely hydrocele improved with diuretic therapy and support. 4. Cirrhosis of uncertain etiology. He has tolerated Lasix and added low-dose Aldactone. HOSPITAL COURSE: Mr. Miles 71-year-old, male with a history of cirrhosis and hepatitis B currently followed by Dr. Johnson. He saw him at the beginning of the year with complaints of weight loss. He was ultimately found to have cirrhosis of the liver. He had an EGD and liver biopsy. Liver biopsy was done exactly a month ago and it showed active hepatitis and cirrhosis but there was no malignancy. The patient reported he lost about 30 pounds over the last [address] Johnson had the patient follow up with Dr. Olivier at [facility] with hepatology, however the patient's insurance has been pushing back and he has not been able to get down there. A few days ago he started having abdominal pain and last week his noticed that he was jaundiced and he had been increasingly worse over the past few days. He came to the ED after seeing his PCP, Dr. Meza. In the ER he was noted to have a bilirubin of 12.6 with transaminase in the 100s. Last month his T bilirubin was normal. He says he had been having isiah colored urine but no other complaints. His belly hurt most in the right upper and lower quadrant. Other than his LFTs his labs were essentially unremarkable. A CT done in the ED showed severely abnormal liver with severe atrophy compatible with cirrhosis and mild suspicious hypoenhancing masses of the liver dome in posterior left lobe. There was a question of possible HCC. He did have a severe abnormal gallbladder with multi segment biliary dilatation of intrahepatic bile ducts presumably due to severe scarring. Also portal hypertension. He was admitted for obstructive jaundice with concern for HCC. GI was consulted and he did undergo abdomen MRI again showed findings highly suspicious for HCC and cirrhosis with severe intrahepatic biliary ductal dilatation. His abdominal ultrasound showed suspicious mass in the posterior left lobe of the liver. Severe cirrhosis with architectural distortion, intra/extrahepatic biliary dilatation of uncertain origin, splenomegaly, and the gallbladder was collapse with numerous stones inside. The patient did undergo ERCP with sphincterectomy and stent placement with Dr. Figueroa. He felt that the patient would need further investigation including a biopsy of the mass in the liver and concern about the possibility of a liver mass impinging onto the common bile duct causing the obstruction and stricture. After his ERCP the patient's numbers were trending down except for his bilirubin. The patient started having some urinary retention. He was restarted on his Flomax and a Melchor catheter was placed. Urology was consulted with Dr. Razo. He did have an acute onset of right scrotal fluid collection. Question of an inguinal hernia. His scrotal ultrasound showed a large cystic structure in the scrotum on the right. Dr. Yuval Reyes was consulted for possible inguinal hernia. However upon his examination, he did not feel a hernia and he did not feel his imaging suggested this either. He felt it was a hydrocele or a spermatocele and strongly advised against any surgical intervention until they could sort out will was going on with his liver. He felt that his next step should be a percutaneous biopsy of his liver at a tertiary center like [facility]. As far as scrotal support, he just recommended supportive treatment as well as antibiotics for likely epididymitis or orchiditis. Dr. Johnson has worked closely with the patient's [employer] insurance. The patient had originally been referred to Mnoty Olivier at [facility], but they were not on the plan. However the patient received a call that Rafiq escoto MD at [facility] who is a transplant surgeon is on our list of preferred providers. Dr. Johnson spoke with Dr. Escoto yesterday evening at [facility]. He is willing to see the patient in the outpatient setting. He recommended that the patient met discharge criteria and that the patient should be discharged to home and his nurse would call the patient to schedule an outpatient followup. He requested that all his films from [facility] be copied on to a disk and sent to his patient clinic where he will review the findings and examine the patient to determine what treatment options will be considered. DISPOSITION: Mr. Miles is being discharged home today. VITAL SIGNS: Temperature is 98.1 degrees, heart rate 98, respirations 18, blood pressure 127/69, O2 is 98% on room air. DISCHARGE DIET: A 2 g sodium diet. DISCHARGE MEDICATIONS: As per Dr. Howard. Please see MAR. FOLLOWUP: Mr. Miles will follow with Dr. Rafiq Escoto at [facility] as instructed. He will follow up with Dr. Figueroa as instructed for stent removal. He can follow up with Dr. Johnson in the clinic in 3-4 weeks as well as follow up with his primary care physician, Dr. Michell Meza in 1-2 weeks. The patient has been provided with a scrotal support. He will continue on his home Flomax as well as p.o. antibiotics and diuretics. He can return to the ED for any worsening of symptoms. DISCHARGE TIME: Thirty-five minutes. Dictated by TAY Galeana for Gonzalo Howard MD cc: MD Gonzalo Mcnulty MD pt examined, agree with above APENOT MTDD
== END 2017-04-15 15:09 | disposition home or self-care (01) ==
LOC: ED 15:11 → 4N 18:51 → SUATTDRO 18:51
PROVIDERS: ATTEND Internal Medicine